=== PATIENT | male | born 1965 | race Caucasian/White ===

== ENCOUNTER → 2018-10-19 14:40 | Outpatient (CLI) | payer SELFPAY ==
--- NOTE | 2018-10-19 14:46 | RAD_ITS ---
STUDY: X-RAY - RIGHT KNEE REASON FOR EXAM: Male, 53 years old. Fluid-filled patella area. No injury TECHNIQUE: 4 view(s) of the knee. COMPARISON: None. FINDINGS: There is prepatellar bursal fluid collection and a small knee joint effusion. The quadriceps and patellar tendons are intact. There are no fractures. Mild degenerative changes of the knee. RAD/Knee 4 or More Views IMPRESSION: Prepatellar bursal fluid collection. 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 Mild osteoarthritis Electronically Signed: Armani Mas MD at 0:02 EDT Tel , Service support ,
== END ==
PROVIDERS: Referring Provider Orthopaedic Surgery; Visit Provider Orthopaedic Surgery
DX: M25.561 Pain in right knee (principal)
CPT/HCPCS: 73564